=== PATIENT | male | born 1965 | race Caucasian/White ===

== ENCOUNTER 2016-08-19 23:11 | Emergency (ER) | payer OTHER ==
[2016-08-19 23:59] VITALS: BP 121/77
--- NOTE | 2016-08-19 23:59 | ED UPPER/LOWER EXTREMITY COMPL ---
History of Present Illness General Chief Complaint: Laceration Procedure Stated Complaint: LT THUMB CUT LAC Source: patient Exam Limitations: no limitations Vital Signs & Intake/Output Vital Signs & Intake/Output Vital Signs Date Time Temp Pulse Resp B/P B/P Pulse O2 O2 Flow FiO2 Mean Ox Delivery Rate 08/19 2359 90 20 121/77 98 Room Air ED Intake and Output 08/20 0000 08/19 1200 Intake Total Output Total Balance Patient 155 lb Weight Allergies Coded Allergies: No Known Allergies (08/19/16) Reconcile Medications Simvastatin (Simvastatin*) 40 MG TABLET 1 TAB PO QPM CHOL (Reported) Triage Note: PER PT LAC TO L THUMB WITH KNIFE AT 1900. PER PT UTD WITH TETANUS. BLEEDING MILDLY, PER PT INTO NAIL, DOES NOT APPEAR SUTURABLE Triage Nurses Notes Reviewed? yes Onset: Abrupt Duration: constant Timing: single episode today Severity: mild Severity Numbers: 1 HPI: Patient is a 50-year-old male who presents emergency room stating that today while using a knife to cut vegetables he accidentally cut the distal aspect of his left thumb off resulting in a skin avulsion and nail avulsion in which bleeding was controlled prior to arrival. Patient is right arm dominant. Tetanus is up-to-date. No medications given prior to arrival (ARIELLE POE) Past History Travel History Traveled to [place] past 21 day No Medical History Any Pertinent Medical History? none Surgical History Surgical History: non-contributory Family History Hx Contributory? No (ARIELLE POE) Review of Systems Review of Systems Constitutional: Reports: no symptoms. EENTM: Reports: no symptoms. Respiratory: Reports: no symptoms. Cardiovascular: Reports: no symptoms. Gastrointestinal/Abdominal: Reports: no symptoms. Genitourinary: Reports: no symptoms. Musculoskeletal: Reports: see HPI, joint pain. Skin: Reports: see HPI. Neurological/Psychological: Reports: no symptoms. Hematologic/Endocrine: Reports: see HPI, bleeding. Immunological: Reports: no symptoms. All Other Systems: Reviewed and Negative (ARIELLE POE) Physical Exam Physical Exam General Appearance: no apparent distress, alert, comfortable Neurologic/Tendon: normal sensation, normal motor functions, normal tendon functions, responds to pain, no evidence tendon injury, no pulse deficit Skin: normal color, warm/dry Comments: Well-developed well-nourished no apparent distress. HEENT: Atraumatic, extraocular motion intact Neck: Supple, no lymphadenopathy Back: Nontender Respiratory: No respiratory distress Neuro: Alert and oriented x3 Psych: Mood affect normal, normal memory normal judgment. Diagram Hands Back 1) Noted subcutaneous angled clean linear skin avulsion with 20% of the nail avulsed and the distal phalanx evulsed No tendon deficit no exposed bone full active range of motion of flexion and extension full resisted range of motion noted flexion and extension Mild active bleeding (ARIELLE POE) Progress Differential Diagnosis: arterial insufficiency, compartment syndrome, contusion, dislocation, DVT, fracture, gout, septic arthritis, sprain, tendon injury Plan of Care: No concerns of tendon deficit or fracture on exam. Initially I cleaned the wound off with peroxide and sterile water Xeroform and bandages were applied patient was offered pain medication and declined. (ARIELLE POE) Departure Departure Disposition: HOME OR SELF CARE Condition: Stable Clinical Impression Primary Impression: Avulsion of skin of left thumb Referrals: LION VELAZCO,YEHUDA Solitario (PCP/Family) Additional Instructions: As discussed begin to apply the Xeroform with the bandages provided to YOU IN the emergency room once a day for the following 7 days. Then leave the area open dry and clean to improve healing. If you note signs of infection redness, pain, swelling, discharge return to emergency room. Follow-up with your primary care doctor 1 week for recheck of symptoms. Begin [id number] ibuprofen if needed for pain and inflammation Departure Forms: Customer Survey General Discharge Information (ARIELLE POE) PA/APPLICATIONS SUPPORT ENGINEER Co-Sign Statement Statement: ED Attending supervision documentation- [] I saw and evaluated the patient. I have also reviewed all the pertinent lab results and diagnostic results. I agree with the findings and the plan of care as documented in the PA's/APPLICATIONS SUPPORT ENGINEER's documentation. [x] I have reviewed the ED Record and agree with the PA's/APPLICATIONS SUPPORT ENGINEER's documentation. [] Additions or exceptions (if any) to the PAs/APPLICATIONS SUPPORT ENGINEER's note and plan are summarized below: [] (GAVIN VELAZCO,CHENTE Rubio)
[2016-08-20] MEDS ORDERED: SIMVASTATIN40 M1 PO
== END 2016-08-20 00:44 ==
LOC: ERH 23:11
DX: S61.102A Unspecified open wound of left thumb with damage to nail, initial encounter (principal); W26.0XXA Contact with knife, initial encounter; Y93.G1 Activity, food preparation and clean up; Y92.9 Unspecified place or not applicable
CPT/HCPCS: 99282

== ENCOUNTER → 2016-09-06 | Day surgery (SDC) | payer OTHER ==
[~2016-09-06] VITALS: Ht 177.8 cm; Wt 77.1 kg
[~2016-09-06] MED LIST: SIMVASTATIN40 M1 PO
--- NOTE | 2016-09-12 09:16 | Operative Report ---
Operative/Inv Procedure Report Surgery Date: 09/06/16 Name of Procedure: Preperitoneal mesh repair laparoscopic left inguinal hernia Pre-Operative Diagnosis: Left inguinal hernia Post-Operative Diagnosis: Same Estimated Blood Loss: scant Surgeon/Event Services Manager: ALEKSANDAR VELAZCO,TINO WAN Anesthesia: general endotracheal tube Operative/Procedure Note Note: Patient was positioned supine on the table. After successful induction of general anesthesia the inguinal and surrounding areas were clipped prepped and draped in the usual sterile fashion. After injection of local anesthetic at the bottom of the umbilicus off the midline to the left, a 1 1/2 cm curved incision was made with a 15 blade, then deepened through Warren's fascia, sweeping off the rectus sheath. A horizontal 1-1/2 cm incision was made between the fibers, elevating these edges with 0 Vicryl stay sutures. Then retracting the muscle laterally, clearing off the posterior rectus sheath, this space is developed down the midline to the pubis sequentially, with an S retractor, a peanut dissector, then the balloon-camera device, inflating it 30-40 pumps while watching how it opens up the space, keeping the epigastrics up. The balloon is then replaced with a 10 mm Hess trocar, inserted, shortened, and secured with the stay sutures, gas turned on to 12 not 15 mm. Then two 5 mm trochars are inserted in the midline just below the camera, spaced by approximately 3 cm. Using mostly blunt dissection with peanuts to define the anatomy, first Adarsh's ligament is swept off medially, checking the medial spaces, direct and femoral. There were no hernias there. Then briefly skipping over the area of the iliac fat pad, we developed the iliopubic tract out laterally to the iliac crest. Then we returned to the area of the fat pad where the hernia sac and the cord structures are adherent, coursing up into an attenuated deep ring. The cord structures form a triangle with the vas approaching medially and the main vessels approaching laterally, with the apex at the deep ring. There was some preperitoneal fat up inside in front that was dragged down and out, helping identify the distal lip of the hernia sac, which is then carefully peeled off the cord structures, especially the vas. The cord is also from the underlying iliac fat. Once the hernia sac is from the cord structures down to the base of this "triangle," a Parietex sided mesh with the suture, is marked and stuffed down the camera trocar, then unfurled in a systematic fashion , first with the smaller leaflet passing behind the cord structures, until the flap covers the epigastrics, covering the deep ring, then the larger leaflet is released from the suture, double-covering the smaller one, but also extends laterally out to the iliac crest, medially over Adarsh's ligament, and superiorly towards the camera. There is a third part of the mesh, that covers the iliac fat pad like a skirt. The mesh was adjusted back and forth so that the keyhole is centered around the cord, lays flat and the edges are not curling. A trial run of letting the gas escape a little bit to see how the mesh would lay as the peritoneum comes back down is done, then when we're satisfied, we let rest of the gas escape, pulling out the instruments and trochars. The fascia is closed with a [id number] 0 Vicryl suture, tying the stay sutures on top. Then we closed the 3 skin incisions with interrupted 4-0 Monocryl, 3 for the umbilical, one each for the smaller ones, followed by Mastisol, Steri-Strips and Band-Aids. Overall estimated blood loss was minimal, lap and sponge counts were correct, wound expectancy was clean, IV fluids crystalloid, complications none, patient tolerated the procedure well, did not significantly giles during extubation and was returned to the recovery room in satisfactory condition.
== END ==
LOC: STS 01:15
DX: K40.90 Unilateral inguinal hernia, without obstruction or gangrene, not specified as recurrent (principal)
CPT/HCPCS: C1781; J0131; J0690; J1100; J1885; J2250; J2405; J3250